=== PATIENT | male | born 1980 | race African-American/Black ===

== ENCOUNTER 2018-05-02 13:29 | Inpatient (IN) | payer OTHER ==
[2018-05-02] MEDS ORDERED: diazePAM 5 MG TABLET PO SCH (14:00)
[2018-05-02 14:41] VITALS: BMI 22.7
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
[2018-05-02] MEDS ORDERED: MAG HYDROX/AL HYDROX/SIMETH 30 ML UNIT-DOSE CUP PO PRN (16:46)
[2018-05-02] MEDS ORDERED: ACETAMINOPHEN 325 MG TABLET (FP) PO PRN (16:46)
[2018-05-02] MEDS ORDERED: IBUPROFEN 400 MG TABLET (FP) PO PRN (16:46)
[2018-05-02] MEDS ORDERED: MENTHOL/PHENOL 1 EACH UD MM PRN (16:46)
[2018-05-02] MEDS ORDERED: guaiFENesin/D-METHORPHAN HB 10 ML UNIT-DOSE CUPS PO PRN (16:46)
[2018-05-02] MEDS ORDERED: NICOTINE POLACRILEX 2 MG GUM BC PRN (16:46)
[2018-05-02] MEDS ORDERED: hydrOXYzine PAMOATE 50 MG CAPSULE (FP) PO PRN (16:46)
[2018-05-02] MEDS ORDERED: MAGNESIUM CITRATE 300 ML BOTTLE PO PRN (16:46)
[2018-05-02] MEDS ORDERED: P-EPHED 60MG/TRIPROLIDI 2.5MG TABLET PO PRN (16:46)
[2018-05-02] MEDS ORDERED: LOPERAMIDE HCL 2 MG CAPSULE PO PRN (16:46)
[2018-05-02] MEDS ORDERED: MAGNESIUM HYDROX 2400MG/30ML ORAL SUSPENSION 30 ML CUP PO PRN (16:46)
[2018-05-02] MEDS ORDERED: diazePAM 5 MG TABLET PO ONE (16:48)
[2018-05-02] MEDS ORDERED: METHADONE HCL 10 MG TABLET (FOR DETOX USE ONLY) PO ONE ×2 (18:00→23:00)
[2018-05-02] MEDS: diazePAM 5 MG TABLET PO PRN (20:12)
[2018-05-02] MEDS: THIAMINE HCL 100 MG TABLET (FP) PO SCH (22:55)
[2018-05-03] MEDS: diazePAM 5 MG TABLET PO PRN ×3 (02:39→22:30)
[2018-05-03 02:56] LABS: URINE APPEARANCE CLEAR; URINE BILIRUBIN NEGATIVE (<2.0 mg/dL); URINE COLOR YELLOW; URINE GLUCOSE (UA) NEGATIVE (NEGATIVE); URINE KETONE NEGATIVE (NEGATIVE); URINE LEUK ESTERASE NEGATIVE (NEGATIVE); URINE NITRITE NEGATIVE (NEGATIVE); URINE PROTEIN NEGATIVE (NEGATIVE); URINE UROBILINOGEN 4.0 E.U/dl mg/dL (0.2-1.0)
[2018-05-03] MEDS ORDERED: METHADONE HCL 10 MG TABLET (FOR DETOX USE ONLY) PO SCH (10:00)
[2018-05-03 10:21] LABS: HEMATOCRIT 40.4 % (35.4-49); HEMOGLOBIN 13.6 GM/dL (11.7-16.9); MCH 30.4 pg (25.7-33.7); MCHC 33.6 g/dl (32.0-35.9); MEAN CELL VOLUME 90.4 fl (80-96); MEAN PLT VOLUME 7.6 fl (7.5-11.1); PLATELET COUNT 186 K/MM3 (134-434); RBC 4.48 M/mm3 (4.00-5.60); RDW 12.5 % (11.9-15.9); WHITE BLOOD COUNT 3.5 K/mm3 (4.0-10.0)
--- NOTE | 2018-05-03 10:22 | PN ---
BHS COWS - Scale Resting Pulse: 1= [place] 81-100 Sweatin= Chills/Flushing Restless Observation: 0= Sits Still Pupil Size: 0= Normal to Room Light Bone or Joint Aches: 2= Severe Diffuse Aches Runny Nose/ Eye Tearin= None GI Upset > 30mins: 1= Stomach Cramp Tremor Observation of Outstretched Hands: 0= None Yawning Observation: 0= None Anxiety or Irritability: 0= None Goose Flesh Skin: 0=Smooth Skin COWS Score: 5 BHS Progress Note (SOAP) Subjective: Patient presents with chills, mild body ache and stomach cramps. Objective: 05/03/18 10:20 Laboratory Tests 05/02/18 22:57 Urine Color Yellow Urine Appearance Clear Urine pH 6.0 Ur Specific [place] 1.024 Urine Protein Negative Urine Glucose (UA) Negative Urine Ketones Negative Urine Blood Negative Urine Nitrite Negative Urine Bilirubin Negative Urine Urobilinogen 4.0 e.u/dl Ur Leukocyte Esterase Negative Vital Signs Temperature 97.7 F 05/03/18 09:18 Pulse Rate 91 H 05/03/18 09:18 Respiratory Rate 18 05/03/18 09:18 Blood Pressure 131/90 05/03/18 09:18 O2 Sat by Pulse Oximetry (%) pe: skin warm and moist car s1s2 resp cta bl gi soft, bs+, nt ext no edema a/p: withdrawal syndrome opiods continue detox as per protocol encourage oral fluids continue to monitor clinically Assessment: 05/03/18 10:21 a/p: withdrawal syndrome opiods continue detox as per protocol encourage oral fluids continue to monitor clinically 05/03/18 10:21 Plan: continue detox as per protocol encourage oral fluids continue to monitor clinically 05/03/18 10:21
[2018-05-03] MEDS: PRENATAL VITAMINS W/ FOLIC ACID TABLET (FP) PO SCH (10:26)
[2018-05-03 10:38] LABS: CHLORIDE 106 mmol/L (98-107); POTASSIUM 3.7 mmol/L (3.5-5.1); SODIUM 142 mmol/L (136-145)
[2018-05-03 11:07] LABS: ALBUMIN 3.2 g/dl (3.4-5.0); ALK PHOS 68 U/L (45-117); ANION GAP 6 MMOL/L (8-16); BILIRUBIN,TOTAL 0.3 mg/dL (0.2-1); BLOOD UREA NITROGEN 9 mg/dL (7-18); CALCIUM 8.7 mg/dL (8.5-10.1); CO2 30 mmol/L (21-32); CREATININE 0.8 mg/dL (0.55-1.3); GLUCOSE,RANDOM 80 mg/dL (74-106); SGOT/AST 22 U/L (15-37); SGPT/ALT 22 U/L (13-61); TOT PROT 6.9 g/dl (6.4-8.2)
[2018-05-03] MEDS: NICOTINE 21 MG/24 HOURS TOPICAL PATCH TD SCH (12:36)
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
--- NOTE | 2018-05-03 12:58 | EKG ---
Test Reason : Blood Pressure : / mmHG Vent. Rate : 075 BPM Atrial Rate : 075 BPM P-R Int : 198 ms QRS Dur : 102 ms QT Int : 370 ms P-R-T Axes : 062 -32 034 degrees QTc Int : 413 ms NORMAL SINUS RHYTHM LEFT AXIS DEVIATION ABNORMAL ECG NO PREVIOUS ECGS AVAILABLE Confirmed by EVAN KENNEDY, NILA ([id number]) on 05/03/2018 12:58:38 PM Referred By: Confirmed By:NILA GORDON MD
[2018-05-03] MEDS ORDERED: QUEtiapine FUMARATE 100 MG TABLET (FP) PO SCH (22:00)
[2018-05-03] MEDS ORDERED: QUEtiapine FUMARATE 50 MG TABLET PO SCH (22:00)
[2018-05-03] MEDS: THIAMINE HCL 100 MG TABLET (FP) PO SCH (22:30)
[2018-05-03] MEDS: QUEtiapine FUMARATE 50 MG TABLET PO SCH (22:30)
[2018-05-04] MEDS ORDERED: diazePAM 5 MG TABLET PO SCH (10:00)
[2018-05-04] MEDS: PRENATAL VITAMINS W/ FOLIC ACID TABLET (FP) PO SCH (10:24)
[2018-05-04] MEDS: METHADONE HCL 5 MG TABLET (FOR DETOX USE ONLY) PO SCH (10:24)
[2018-05-04] MEDS: diazePAM 5 MG TABLET PO PRN ×2 (10:24→22:27)
[2018-05-04] MEDS: NICOTINE 21 MG/24 HOURS TOPICAL PATCH TD SCH (10:25)
--- NOTE | 2018-05-04 13:29 | PN ---
BHS COWS - Scale Resting Pulse: 0= [place] 80 or Below Sweatin= No chills or Flushing Restless Observation: 1= Difficult to Sit Still Pupil Size: 0= Normal to Room Light Bone or Joint Aches: 1= Mild Discomfort Runny Nose/ Eye Tearin= Nasal Congestion GI Upset > 30mins: 0= None Tremor Observation of Outstretched Hands: 0= None Yawning Observation: 0= None Anxiety or Irritability: 0= None Goose Flesh Skin: 0=Smooth Skin COWS Score: 3 BHS Progress Note (SOAP) Subjective: Patient c/o mild anxiety, body aches and irritability. Objective: 05/04/18 13:27 Laboratory Tests 05/02/18 05/03/18 05/03/18 22:57 07:00 07:00 WBC 3.5 L RBC 4.48 Hgb 13.6 Hct 40.4 MCV 90.4 MCH 30.4 MCHC 33.6 RDW 12.5 Plt Count 186 MPV 7.6 Sodium 142 Potassium 3.7 Chloride 106 Carbon Dioxide 30 Anion Gap 6 L BUN 9 Creatinine 0.8 Creat Clearance w eGFR > 60 Random Glucose 80 Calcium 8.7 Total Bilirubin 0.3 AST 22 ALT 22 Alkaline Phosphatase 68 Total Protein 6.9 Albumin 3.2 L Urine Color Yellow Urine Appearance Clear Urine pH 6.0 Ur Specific [place] 1.024 Urine Protein Negative Urine Glucose (UA) Negative Urine Ketones Negative Urine Blood Negative Urine Nitrite Negative Urine Bilirubin Negative Urine Urobilinogen 4.0 e.u/dl Ur Leukocyte Esterase Negative RPR Titer 05/03/18 07:00 WBC RBC Hgb Hct MCV MCH MCHC RDW Plt Count MPV Sodium Potassium Chloride Carbon Dioxide Anion Gap BUN Creatinine Creat Clearance w eGFR Random Glucose Calcium Total Bilirubin AST ALT Alkaline Phosphatase Total Protein Albumin Urine Color Urine Appearance Urine pH Ur Specific [place] Urine Protein Urine Glucose (UA) Urine Ketones Urine Blood Urine Nitrite Urine Bilirubin Urine Urobilinogen Ur Leukocyte Esterase RPR Titer Nonreactive Vital Signs Temperature 97.7 F 05/04/18 13:25 Pulse Rate 99 H 05/04/18 13:25 Respiratory Rate 05/04/18 13:25 Blood Pressure 125/76 05/04/18 13:25 O2 Sat by Pulse Oximetry (%) PE: alert and oriented x 3 skin warm and dry car s1s2 resp cta bl psych: mild anxiety and irritability Assessment: 05/04/18 13:28 Withdrawal syndrome Plan: Continue detox as per protocol encourage oral fluids continue to monitor clinically
[2018-05-04] MEDS: THIAMINE HCL 100 MG TABLET (FP) PO SCH (22:26)
[2018-05-04] MEDS: QUEtiapine FUMARATE 50 MG TABLET PO SCH (22:26)
[2018-05-05] MEDS: METHADONE HCL 5 MG TABLET (FOR DETOX USE ONLY) PO SCH (10:24)
[2018-05-05] MEDS: NICOTINE 21 MG/24 HOURS TOPICAL PATCH TD SCH (10:25)
[2018-05-05] MEDS: PRENATAL VITAMINS W/ FOLIC ACID TABLET (FP) PO SCH (10:25)
[2018-05-05] MEDS: diazePAM 5 MG TABLET PO PRN (10:25)
--- NOTE | 2018-05-05 11:20 | PN ---
BHS Progress Note (SOAP) Subjective: ANXIETY,SWEATS, INTERMITTENT SLEEP. Objective: 05/05/18 11:20 Vital Signs 05/05/18 05/05/18 05/05/18 03:30 06:10 09:52 Temperature 97 F L 97.4 F L Pulse Rate 80 100 H Respiratory 18 18 18 Rate Blood Pressure 110/64 115/72 Laboratory Tests 05/02/18 05/03/18 05/03/18 22:57 07:00 07:00 WBC 3.5 L RBC 4.48 Hgb 13.6 Hct 40.4 MCV 90.4 MCH 30.4 MCHC 33.6 RDW 12.5 Plt Count 186 MPV 7.6 Sodium 142 Potassium 3.7 Chloride 106 Carbon Dioxide 30 Anion Gap 6 L BUN 9 Creatinine 0.8 Creat Clearance w eGFR > 60 Random Glucose 80 Calcium 8.7 Total Bilirubin 0.3 AST 22 ALT 22 Alkaline Phosphatase 68 Total Protein 6.9 Albumin 3.2 L Urine Color Yellow Urine Appearance Clear Urine pH 6.0 Ur Specific [place] 1.024 Urine Protein Negative Urine Glucose (UA) Negative Urine Ketones Negative Urine Blood Negative Urine Nitrite Negative Urine Bilirubin Negative Urine Urobilinogen 4.0 e.u/dl Ur Leukocyte Esterase Negative RPR Titer 05/03/18 07:00 WBC RBC Hgb Hct MCV MCH MCHC RDW Plt Count MPV Sodium Potassium Chloride Carbon Dioxide Anion Gap BUN Creatinine Creat Clearance w eGFR Random Glucose Calcium Total Bilirubin AST ALT Alkaline Phosphatase Total Protein Albumin Urine Color Urine Appearance Urine pH Ur Specific [place] Urine Protein Urine Glucose (UA) Urine Ketones Urine Blood Urine Nitrite Urine Bilirubin Urine Urobilinogen Ur Leukocyte Esterase RPR Titer Nonreactive Assessment: 05/05/18 11:20 WITHDRAWAL SX Plan: CONTINUE DETOX
[2018-05-05] MEDS: THIAMINE HCL 100 MG TABLET (FP) PO SCH (22:19)
[2018-05-05] MEDS: QUEtiapine FUMARATE 50 MG TABLET PO SCH (22:19)
[2018-05-06] MEDS ORDERED: diazePAM 5 MG TABLET PO SCH (10:00)
[2018-05-06] MEDS ORDERED: METHADONE HCL 10 MG TABLET (FOR DETOX USE ONLY) PO SCH (10:00)
--- NOTE | 2018-05-06 10:03 | PN ---
BHS Progress Note (SOAP) Subjective: SLIGHT ANXIETY, LOWER BACK PAIN/SPASMS. Objective: 05/06/18 10:02 Vital Signs 05/06/18 05/06/18 05/06/18 03:30 05:56 06:30 Temperature 98.9 F Pulse Rate 83 Respiratory 18 18 18 Rate Blood Pressure 95/56 L 05/06/18 09:06 Temperature 98.2 F Pulse Rate 106 H Respiratory 20 Rate Blood Pressure 119/75 Laboratory Tests 05/02/18 05/03/18 05/03/18 22:57 07:00 07:00 WBC 3.5 L RBC 4.48 Hgb 13.6 Hct 40.4 MCV 90.4 MCH 30.4 MCHC 33.6 RDW 12.5 Plt Count 186 MPV 7.6 Sodium 142 Potassium 3.7 Chloride 106 Carbon Dioxide 30 Anion Gap 6 L BUN 9 Creatinine 0.8 Creat Clearance w eGFR > 60 Random Glucose 80 Calcium 8.7 Total Bilirubin 0.3 AST 22 ALT 22 Alkaline Phosphatase 68 Total Protein 6.9 Albumin 3.2 L Urine Color Yellow Urine Appearance Clear Urine pH 6.0 Ur Specific [place] 1.024 Urine Protein Negative Urine Glucose (UA) Negative Urine Ketones Negative Urine Blood Negative Urine Nitrite Negative Urine Bilirubin Negative Urine Urobilinogen 4.0 e.u/dl Ur Leukocyte Esterase Negative RPR Titer 05/03/18 07:00 WBC RBC Hgb Hct MCV MCH MCHC RDW Plt Count MPV Sodium Potassium Chloride Carbon Dioxide Anion Gap BUN Creatinine Creat Clearance w eGFR Random Glucose Calcium Total Bilirubin AST ALT Alkaline Phosphatase Total Protein Albumin Urine Color Urine Appearance Urine pH Ur Specific [place] Urine Protein Urine Glucose (UA) Urine Ketones Urine Blood Urine Nitrite Urine Bilirubin Urine Urobilinogen Ur Leukocyte Esterase RPR Titer Nonreactive Assessment: 05/06/18 10:03 WITHDRAWAL SX Plan: CONTINUE DETOX LIDOCAINE PATCH
[2018-05-06] MEDS: PRENATAL VITAMINS W/ FOLIC ACID TABLET (FP) PO SCH (10:23)
[2018-05-06] MEDS: NICOTINE 21 MG/24 HOURS TOPICAL PATCH TD SCH (10:23)
[2018-05-06] MEDS: LIDOCAINE 5% TOPICAL PATCH TP SCH (13:05)
[2018-05-06] MEDS: THIAMINE HCL 100 MG TABLET (FP) PO SCH (22:12)
[2018-05-06] MEDS: QUEtiapine FUMARATE 50 MG TABLET PO SCH (22:12)
[2018-05-06] MEDS: LIDOCAINE PATCH REMOVAL MC SCH (22:13)
[2018-05-06] MEDS: MELATONIN 5 MG TABLETS PO PRN (22:13)
[2018-05-07] MEDS ORDERED: METHADONE HCL 5 MG TABLET (FOR DETOX USE ONLY) PO SCH (06:00)
[2018-05-07] MEDS: NICOTINE 21 MG/24 HOURS TOPICAL PATCH TD SCH (10:24)
[2018-05-07] MEDS: PRENATAL VITAMINS W/ FOLIC ACID TABLET (FP) PO SCH (10:24)
[2018-05-07] MEDS: LIDOCAINE 5% TOPICAL PATCH TP SCH (10:24)
--- NOTE | 2018-05-07 13:13 | PN ---
BHS Progress Note (SOAP) Subjective: Anxious, interrupted sleep. Patient requesting to start MMTP stating that if he is discharged today, he is going to do drugs and get high because he wants to get connected with a methadone program. Patient requesting to speak with his counselor tomorrow. Objective: 05/07/18 13:08 Last Vital Signs Temp Pulse Resp BP Pulse Ox 97.6 F 108 H 20 120/74 05/07/18 09:21 05/07/18 09:21 05/07/18 09:21 05/07/18 09:21 Laboratory Tests 05/02/18 05/03/18 05/03/18 22:57 07:00 07:00 WBC 3.5 L RBC 4.48 Hgb 13.6 Hct 40.4 MCV 90.4 MCH 30.4 MCHC 33.6 RDW 12.5 Plt Count 186 MPV 7.6 Sodium 142 Potassium 3.7 Chloride 106 Carbon Dioxide 30 Anion Gap 6 L BUN 9 Creatinine 0.8 Creat Clearance w eGFR > 60 Random Glucose 80 Calcium 8.7 Total Bilirubin 0.3 AST 22 ALT 22 Alkaline Phosphatase 68 Total Protein 6.9 Albumin 3.2 L Urine Color Yellow Urine Appearance Clear Urine pH 6.0 Ur Specific [place] 1.024 Urine Protein Negative Urine Glucose (UA) Negative Urine Ketones Negative Urine Blood Negative Urine Nitrite Negative Urine Bilirubin Negative Urine Urobilinogen 4.0 e.u/dl Ur Leukocyte Esterase Negative RPR Titer 05/03/18 07:00 WBC RBC Hgb Hct MCV MCH MCHC RDW Plt Count MPV Sodium Potassium Chloride Carbon Dioxide Anion Gap BUN Creatinine Creat Clearance w eGFR Random Glucose Calcium Total Bilirubin AST ALT Alkaline Phosphatase Total Protein Albumin Urine Color Urine Appearance Urine pH Ur Specific [place] Urine Protein Urine Glucose (UA) Urine Ketones Urine Blood Urine Nitrite Urine Bilirubin Urine Urobilinogen Ur Leukocyte Esterase RPR Titer Nonreactive Labs reviewed Assessment: 05/07/18 13:13 Withdrawal symptoms Plan: Continue detox Encouraged PO water hydration For discharge tomorrow, instructed to speak with counselor today and tomorrow regarding MMTP referral
[2018-05-07] MEDS: QUEtiapine FUMARATE 50 MG TABLET PO SCH (22:15)
[2018-05-07] MEDS: THIAMINE HCL 100 MG TABLET (FP) PO SCH (22:15)
[2018-05-07] MEDS: MELATONIN 5 MG TABLETS PO PRN (22:15)
[2018-05-07] MEDS: LIDOCAINE PATCH REMOVAL MC SCH (22:16)
[2018-05-08 06:44] VITALS: BP 102/58; PULSE 80; TEMP 98
--- NOTE | 2018-05-08 12:25 | PN ---
BHS Progress Note (SOAP) Subjective: Anxious about starting a methadone program Offers no medical complains Objective: 05/08/18 12:23 A & O x 3 irritable No respiratory nor acute distress Vital Signs Temperature 98.0 F 05/08/18 06:43 Pulse Rate 80 05/08/18 06:43 Respiratory Rate 18 05/08/18 06:43 Blood Pressure 102/58 L 05/08/18 06:43 O2 Sat by Pulse Oximetry (%) Assessment: 05/08/18 12:24 detox completed Plan: for discharge
--- NOTE | 2018-05-08 12:30 | DS ---
[facility] Detox Discharge Summary Admission Date: 05/02/18 Discharge Date: 05/08/18 - History Additional Comments: pt for discharge Pt has beeen linked to a MMTP and per counsellor, pt to follow up today with [facility] at [facility] Pt acknowleged same and verbalized understanding no prescriptions needed - Physical Exam Results Vital Signs: Vital Signs Temperature 98.0 F 05/08/18 06:43 Pulse Rate 80 05/08/18 06:43 Respiratory Rate 18 05/08/18 06:43 Blood Pressure 102/58 L 05/08/18 06:43 O2 Sat by Pulse Oximetry (%) Pertinent Admission Physical Exam Findings: withdrawal sx - Treatment Hospital Course: Detox Protocol Followed, Detoxed Safely, Responded well, Discharged Condition Good, Rehab Referral Accepted Patient has Accepted a Rehab Referral to: [facility] - Medication Discharge Medications: Ambulatory Orders Quetiapine Fumarate [Seroquel -] 50 mg PO HS 05/02/18 - Diagnosis (1) Opioid dependence with withdrawal Status: Acute (2) Sedative, hypnotic or anxiolytic dependence with withdrawal, uncomplicated Status: Acute (3) Substance induced mood disorder Status: Acute (4) Nicotine dependence Status: Chronic Qualifiers: Nicotine product type: cigarettes Substance use status: in withdrawal Qualified Code(s): F17.213 - Nicotine dependence, cigarettes, with withdrawal (5) Post traumatic stress disorder (PTSD) Status: Chronic (6) Anxiety Status: Suspected (7) Depression Status: Suspected Qualifiers: Depression Type: unspecified Qualified Code(s): F32.9 - Major depressive disorder, single episode, unspecified - AMA Did Patient Leave Against Medical Advice: No
== END 2018-05-08 09:40 | disposition home or self-care (01) | DRG 773 ==
LOC: YASAS 13:29 → Y3N 17:41
PROC: HZ2ZZZZ Detoxification Services for Substance Abuse Treatment (ICD-10-PCS; principal; 2018-05-02)
DX: F11.23 Opioid dependence with withdrawal (principal); F13.230 Sedative, hypnotic or anxiolytic dependence with withdrawal, uncomplicated; F17.213 Nicotine dependence, cigarettes, with withdrawal; F19.24 Other psychoactive substance dependence with psychoactive substance-induced mood disorder; F43.10 Post-traumatic stress disorder, unspecified; F41.9 Anxiety disorder, unspecified; F32.9 Major depressive disorder, single episode, unspecified; G47.00 Insomnia, unspecified; M54.5 Low back pain
CPT/HCPCS: 36415; 80053; 81003; 85027; 86593; 93005; 93010